=== PATIENT | male | born 1950 | race Caucasian/White ===

== ENCOUNTER 2019-06-24 14:24 | Emergency (ER) | payer MEDICARE, OTHER ==
--- NOTE | 2019-06-24 15:11 | RAD ---
EXAM: Single view of the chest HISTORY: Fall with chest trauma COMPARISON: 12/13/2008 FINDINGS: Single view of the chest shows a normal sized cardiomediastinal silhouette. There is no jewell dence of consolidation, mass, or pleural effusion. The bones are unremarkable. IMPRESSION: No evidence of acute cardiopulmonary disease
[2019-06-24 15:13] LABS: #Lymphocytes 1.1 thou/uL (1.20-3.40); #Monocytes 0.2 thou/uL (0.11-0.59); #Neutrophils 5.8 thou/uL (1.40-6.50); %Basophils 0.4 % (0.0-1.0); %Lymphocytes 15.6 % (21.0-51.0); %Monocytes 2.6 % (0.0-10.0); %Neutrophils 81.4 % (42.0-75.0); Mean Corpuscular HGB CONC 30.8 g/dL (32.0-36.0); Mean Corpuscular Hemoglobin 29.5 pg (27.0-31.0); Mean Corpuscular Volume 95.8 fL (78.0-98.0); Mean Platelet Volume 8.6 fL (7.4-10.4); Platelet Count 222 thou/uL (130-400); RBC Distribution Width 13.5 % (11.5-14.5); Red Blood Cell (RBC) Count 4.74 mill/uL (4.70-6.10); White Blood Cell (WBC) Count 7.2 thou/uL (4.8-10.8)
--- NOTE | 2019-06-24 15:25 | RAD ---
EXAM: 2 views of the right hip HISTORY: Right hip pain after fall COMPARISON: None FINDINGS: 2 views of the right hip shows a fracture of the right femoral neck. No degenerative change s are seen. No soft tissue swelling is present. IMPRESSION: Right femoral neck fracture
[2019-06-24 15:26] LABS: ALT (SGPT) 15 U/L (8-55); AST (SGOT) 20 U/L (5-34); Albumin 4.2 g/dL (3.4-4.8); Alkaline Phosphatase 78 U/L (40-110); Anion Gap 14 mmol/L (10-20); BUN (Urea Nitrogen) 8 mg/dL (8.4-25.7); Bilirubin, Total 0.6 mg/dL (0.2-1.2); Calc. Creatinine Clearance 0 mL/min (70-130); Calcium 9.1 mg/dL (7.8-10.44); Carbon Dioxide 23 mmol/L (23-31); Chloride 103 mmol/L (98-107); Estimated GFR-MDRD Greater than 90; Globulin 3.8 g/dL (2.4-3.5); Glucose 99 mg/dL (80-115); Sodium 136 mmol/L (136-145)
[2019-06-24 16:15] LABS: Acetaminophen Less than 6.0 mcg/mL (10.0-30.0); Alcohol Less than 10 mg/dL (Less than 10); Salicylate Less than 8.0 mg/dL (15.0-30.0)
== END 2019-06-24 17:57 | disposition short-term general hospital (02) ==
LOC: MADERS 14:24
DX: S72.001A Fracture of unspecified part of neck of right femur, initial encounter for closed fracture (principal); W01.0XXA Fall on same level from slipping, tripping and stumbling without subsequent striking against object, initial encounter
CPT/HCPCS: 36415; 71045; 80053; 80307; 84484; 85025; 93005

== ENCOUNTER 2019-07-31 17:00 | Inpatient (IN) | payer MEDICARE ==
[2019-07-31] MEDS: Aspirin 81 mg Enteric Coated Tablet PO SCH (21:25)
[2019-08-01] MEDS: Acetaminophen 500 MG TAB PO SCH ×4 (00:24→17:48)
[2019-08-01] MEDS: Polyethylene Glycol 3350 17 GM Packet PO SCH (09:57)
[2019-08-01] MEDS: Loratadine 10 MG TAB PO SCH (09:57)
[2019-08-01] MEDS: Aspirin 81 mg Enteric Coated Tablet PO SCH ×2 (09:57→21:25)
[2019-08-01 11:45] LABS: ALT (SGPT) 22 U/L (8-55); AST (SGOT) 26 U/L (5-34); Albumin 3.3 g/dL (3.4-4.8); Alkaline Phosphatase 88 U/L (40-110); Anion Gap 14 mmol/L (10-20); BUN (Urea Nitrogen) 11 mg/dL (8.4-25.7); Bilirubin, Total 0.5 mg/dL (0.2-1.2); Calc. Creatinine Clearance 97 mL/min (70-130); Calcium 8.7 mg/dL (7.8-10.44); Carbon Dioxide 23 mmol/L (23-31); Chloride 104 mmol/L (98-107); Estimated GFR-MDRD Greater than 90; Glucose 97 mg/dL (80-115); Potassium 3.7 mmol/L (3.5-5.1); Protein, Total 7.3 g/dL (5.8-8.1); Sodium 137 mmol/L (136-145)
[2019-08-02] MEDS: Acetaminophen 500 MG TAB PO SCH ×4 (00:45→17:45)
[2019-08-02 05:36] LABS: #Lymphocytes 1.9 thou/uL (1.20-3.40); #Monocytes 0.5 thou/uL (0.11-0.59); #Neutrophils 4.3 thou/uL (1.40-6.50); %Basophils 0.3 % (0.0-1.0); %Monocytes 7.5 % (0.0-10.0); %Neutrophils 64.2 % (42.0-75.0); Hemoglobin 9.7 g/dL (14.0-18.0); Mean Corpuscular HGB CONC 32.4 g/dL (32.0-36.0); Mean Corpuscular Hemoglobin 30.4 pg (27.0-31.0); Mean Corpuscular Volume 93.7 fL (78.0-98.0); Mean Platelet Volume 7.2 fL (7.4-10.4); Platelet Count 339 thou/uL (130-400); RBC Distribution Width 13.9 % (11.5-14.5); White Blood Cell (WBC) Count 6.6 thou/uL (4.8-10.8)
[2019-08-02] MEDS: Aspirin 81 mg Enteric Coated Tablet PO SCH ×2 (08:19→19:52)
[2019-08-02] MEDS: Loratadine 10 MG TAB PO SCH (08:19)
[2019-08-02] MEDS: Polyethylene Glycol 3350 17 GM Packet PO SCH (08:20)
[2019-08-03] MEDS: Acetaminophen 500 MG TAB PO SCH ×4 (01:56→17:35)
[2019-08-03] MEDS: Aspirin 81 mg Enteric Coated Tablet PO SCH ×2 (08:35→21:01)
[2019-08-03] MEDS: Loratadine 10 MG TAB PO SCH (08:35)
[2019-08-03] MEDS: Polyethylene Glycol 3350 17 GM Packet PO SCH (08:36)
[2019-08-04] MEDS: Acetaminophen 500 MG TAB PO SCH ×5 (01:10→21:39)
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
--- NOTE | 2019-08-04 07:39 | PRG ---
DATE OF SERVICE: 08/03/2019 SUBJECTIVE: The patient said he is doing fine. Yesterday, he got up, was able to shower himself, which is standby assistance. He says his hips are feeling good. He is not having any pain. OBJECTIVE: GENERAL: The patient is lying in bed, looks very comfortable, and in no distress. VITAL SIGNS: His temp is 98.1, pulse 75, respirations 20, O2 saturation 99% on room air, blood pressure 125/77. LUNGS: Clear. HEART: Regular rate. EXTREMITIES: No edema. ASSESSMENT: 1. Generalized weakness and deconditioning. a. Following a fall with fracture of the left hip and repair. b. Improved as of 08/03. 2. Hospitalized at [facility] from 07/28/2019 to 07/31/2019 for a fall resulting in a left femoral neck fracture, for which he underwent a bipolar hemiarthroplasty on 07/29/[address] Jeremiah Adames. 3. Hospitalized at [facility] from 06/24/2019 to 06/27/2019 for fall resulting in a right femoral neck fracture, for which he underwent a right hip arthroplasty by Dr. Jeremiah Adames on 06/25/2019. 4. History of supraventricular tachycardia. a. No recurrence as of 08/03. 5. History of traumatic brain injury from an electrocution in 1985, leaving him with slurred speech. PLAN: Continue present care. Continue PT and OT. Job ID: [id number]
[2019-08-04] MEDS: Loratadine 10 MG TAB PO SCH (08:44)
[2019-08-04] MEDS: Aspirin 81 mg Enteric Coated Tablet PO SCH ×2 (08:44→20:27)
[2019-08-04] MEDS: Polyethylene Glycol 3350 17 GM Packet PO SCH (08:45)
--- NOTE | 2019-08-04 11:11 | PRG ---
DATE OF SERVICE: 08/04/2019 SUBJECTIVE: The patient thinks he is doing fine. He is not having any pain of significance. OBJECTIVE: GENERAL: The patient is lying in bed, alert, talkative, appears very comfortable, in no distress. VITAL SIGNS: Temperature 97.8, pulse 76, respirations 16, O2 saturation 97% on room air, and blood pressure 144/65. LUNGS: Clear. HEART: Regular rate. MUSCULOSKELETAL: The left hip incision has a little serous drainage on the dressing and bruising around the left hip posteriorly. EXTREMITIES: Lower extremities, no edema. ASSESSMENT: 1. Generalized weakness and deconditioning. a. Following a fall with fracture of the hip and repair. b. Improved as of 08/04. 2. Hospitalized at [facility] from 07/28/2019 until 07/31/2019 for a fall, resulting in left femoral neck fracture, for which he underwent a bipolar hemiarthroplasty on 07/[address] Jeremiah Adames. 3. Hospitalized at [facility] from 06/24/2019 to 06/27/2019 for a fall resulting in right femoral neck fracture, for which he underwent a right hip arthroplasty by Dr. Jeremiah Adames on 06/25/2019. 4. History of supraventricular tachycardia. a. No recurrence as of 08/04. 5. History of traumatic brain injury from electrocution in 1985, leaving him with slurred speech. PLAN: Continue PT and OT. Job ID: [id number] MTDD
[2019-08-05] MEDS: Acetaminophen 500 MG TAB PO SCH ×3 (05:58→17:31)
[2019-08-05] MEDS: Polyethylene Glycol 3350 17 GM Packet PO SCH (09:20)
[2019-08-05] MEDS: Aspirin 81 mg Enteric Coated Tablet PO SCH ×2 (09:21→21:19)
[2019-08-05] MEDS: Loratadine 10 MG TAB PO SCH (09:21)
--- NOTE | 2019-08-05 09:25 | PRG ---
DATE OF SERVICE: 08/05/2019 SUBJECTIVE: The patient thinks he is doing good. He is doing better with therapy. He is not having any significant pain. OBJECTIVE: GENERAL: The patient is sitting up on side of the bed, eating breakfast. He is alert, talkative, appears in no distress. VITAL SIGNS: Show temperature 97, pulse 77, respirations are 16, O2 saturation 96% on room air, blood pressure 105/75. LUNGS: Clear. HEART: Regular rate. EXTREMITIES: Lower extremities, no edema. NEUROLOGIC: The patient is alert, talkative, sometimes has little trouble getting all his thoughts out and slurs his speech just a little, which is all chronic. ASSESSMENT: 1. Generalized weakness and deconditioning. a. Following a fall with fracture of the left hip and repair. b. Improving as of 08/05. 2. Hospitalized at [facility] from 07/28/2019 until 07/31/2019 for a fall, resulting in left femoral neck fracture, for which he underwent a bipolar hemiarthroplasty on 07/[address] Jeremiah Adames. 3. Hospitalized at [facility] from 06/24/2019 to 06/27/2019 for fall resulting in a right femoral neck fracture, for which he underwent a right hip arthroplasty by Dr. Jeremiah Adames on 06/25/2019. 4. History of supraventricular tachycardia. a. No recurrence as of 08/05. 5. History of traumatic brain injury from an electrocution, 1985, leaving him with some slurred speech and little trouble completing his thoughts. PLAN: Continue PT. Job ID: [id number] [facility]
[2019-08-05] MEDS: Ibuprofen 600 MG TAB PO PRN (17:31)
[2019-08-06] MEDS: Acetaminophen 500 MG TAB PO SCH ×4 (03:03→18:04)
[2019-08-06] MEDS: Aspirin 81 mg Enteric Coated Tablet PO SCH ×2 (08:40→20:11)
[2019-08-06] MEDS: Polyethylene Glycol 3350 17 GM Packet PO SCH (08:40)
[2019-08-06] MEDS: Loratadine 10 MG TAB PO SCH (08:40)
[2019-08-06] MEDS: Ibuprofen 600 MG TAB PO PRN (20:12)
[2019-08-07] MEDS: Acetaminophen 500 MG TAB PO SCH ×4 (01:05→18:28)
[2019-08-07] MEDS: Aspirin 81 mg Enteric Coated Tablet PO SCH ×2 (08:23→21:29)
[2019-08-07] MEDS: Polyethylene Glycol 3350 17 GM Packet PO SCH (08:23)
[2019-08-07] MEDS: Loratadine 10 MG TAB PO SCH (08:23)
--- NOTE | 2019-08-07 08:58 | PRG ---
DATE OF SERVICE: 08/07/2019 SUBJECTIVE: The patient is doing good. He has no complaint. He is transferring easier and is walking further. OBJECTIVE: GENERAL: The patient is alert, appears comfortable, in no distress. VITAL SIGNS: His temperature 96.5, pulse 74, respirations 16, O2 saturation 97 % on room air, and blood pressure 118/68. LUNGS: Clear. HEART: Regular rate. EXTREMITIES: The patient ambulating with the use of his walker. ASSESSMENT: 1. Generalized weakness and deconditioning. a. Following a fall with fracture of the left hip and repair. b. Improving as of 08/07. 2. Hospitalized at [facility] from 07/28/2019 until 07/31/2019 for fall , resulting left femoral neck fracture, for which he underwent a bipolar hemiarthroplasty on 07/[address] Jeremiah Adames. 3. Hospitalized at [facility] from 06/24/2019 until 06/27/2019 for fall , resulting right femoral neck fracture, for which he underwent a right hip arthroplasty by Dr. Jeremiah Adames, orthopedic surgeon, on 2019. 4. History of supraventricular tachycardia. a. No recurrence. 5. History of traumatic brain injury from an electrocution in 1985 that left the patient with some slurred speech and a little trouble completing thoughts. PLAN: Continue PT and OT. Job ID: [id number] MTDD
[2019-08-08] MEDS: Acetaminophen 500 MG TAB PO SCH ×4 (01:06→17:23)
[2019-08-08] MEDS: Loratadine 10 MG TAB PO SCH (08:40)
[2019-08-08] MEDS: Polyethylene Glycol 3350 17 GM Packet PO SCH (08:40)
[2019-08-08] MEDS: Aspirin 81 mg Enteric Coated Tablet PO SCH ×2 (08:40→21:10)
--- NOTE | 2019-08-08 12:20 | PRG ---
DATE OF SERVICE: 08/08/2019 SUBJECTIVE: The patient said he is doing good. He is making good progress with physical therapy and he is having no significant pain. OBJECTIVE: GENERAL: The patient is lying in his bed, alert, talkative, appears in no distress. VITAL SIGNS: His temp is 97.9, pulse 80, respirations 16, O2 saturation 97% on room air, blood pressure 112/72. LUNGS: Clear. HEART: Regular rate. EXTREMITIES: No edema. ASSESSMENT: 1. Generalized weakness and deconditioning. a. Following a fall and fracture of the left hip and repair. b. Continued improvement as of 08/08. 2. Hospitalized at [facility] from 07/28/2019 until 07/31/2019 for fall resulting in left femoral neck fracture, for which he underwent a bipolar hemiarthroplasty on 07/[address] Jeremiah Adames. 3. Hospitalized at [facility] from 06/24/2019 until 06/27/2019 for fall resulting in right femoral neck fracture, for which he underwent a right hip arthroplasty by Dr. Jeremiah Adames on 06/25/2019. 4. History of supraventricular tachycardia. a. No recurrence. 5. History of traumatic brain injury from an electrocution in 1985 that left the patient with some slurred speech and little trouble completing his thoughts. PLAN: Continue PT/OT. Job ID: [id number] [facility]
[2019-08-09] MEDS: Acetaminophen 500 MG TAB PO SCH ×4 (02:04→17:34)
[2019-08-09] MEDS: Aspirin 81 mg Enteric Coated Tablet PO SCH ×2 (08:55→20:40)
[2019-08-09] MEDS: Loratadine 10 MG TAB PO SCH (08:55)
[2019-08-09] MEDS: Polyethylene Glycol 3350 17 GM Packet PO SCH (08:56)
[2019-08-10] MEDS: Acetaminophen 500 MG TAB PO SCH ×4 (00:47→16:57)
[2019-08-10] MEDS: Polyethylene Glycol 3350 17 GM Packet PO SCH (08:59)
[2019-08-10] MEDS: Aspirin 81 mg Enteric Coated Tablet PO SCH ×2 (08:59→21:12)
[2019-08-10] MEDS: Loratadine 10 MG TAB PO SCH (08:59)
[2019-08-11] MEDS: Acetaminophen 500 MG TAB PO SCH ×4 (00:42→18:31)
--- NOTE | 2019-08-11 06:10 | PRG ---
DATE OF SERVICE: 08/10/2019 SUBJECTIVE: The patient thinks he is doing fine. He is doing better on his transfers, is walking further. He is not having any pain. OBJECTIVE: GENERAL: The patient is lying in bed, but was able to get up into a seated position with his feet on the ground without any problem. He is alert, appears in no distress. VITAL SIGNS: His temperature 97.1 pulse 68, respirations 16, O2 saturation 98% on room air, blood pressure 120/60. LUNGS: Clear. HEART: Regular rate. EXTREMITIES: No edema. ASSESSMENT: 1. Generalized weakness and deconditioning. a. Following a fall and fracture of the left hip and repair. b. Continued improvement as of 08/10. 2. Hospitalized at [facility] from 07/28 to 07/31/2019 for fall resulting in left femoral neck fracture, for which he underwent a bipolar hemiarthroplasty on 07/[address] Jeremiah Adames. 3. Hospitalized at [facility] from 06/24/2019 until 06/27/2019 for a fall resulting in a right femoral neck fracture, for which he underwent a right hip arthroplasty by Dr. Jeremiah Adames on 06/25/2019. 4. History of supraventricular tachycardia. a. No recurrence. 5. History of traumatic brain injury from an electrocution 1985, that has left the patient with slurred speech and trouble completing his thoughts at times. PLAN: Continue PT, OT. The patient is scheduled to be seen in followup by his orthopedic surgeon, Dr. Jeremiah Adames on 08/14. Job ID: [id number] MTDD
[2019-08-11] MEDS: Loratadine 10 MG TAB PO SCH (08:32)
[2019-08-11] MEDS: Aspirin 81 mg Enteric Coated Tablet PO SCH ×2 (08:32→21:40)
[2019-08-11] MEDS: Polyethylene Glycol 3350 17 GM Packet PO SCH (08:33)
[2019-08-12] MEDS: Acetaminophen 500 MG TAB PO SCH ×4 (03:01→17:51)
[2019-08-12] MEDS: Aspirin 81 mg Enteric Coated Tablet PO SCH ×2 (08:25→21:24)
[2019-08-12] MEDS: Polyethylene Glycol 3350 17 GM Packet PO SCH (08:25)
[2019-08-12] MEDS: Loratadine 10 MG TAB PO SCH (08:26)
[2019-08-13] MEDS: Acetaminophen 500 MG TAB PO SCH ×5 (01:21→20:56)
[2019-08-13] MEDS: Aspirin 81 mg Enteric Coated Tablet PO SCH ×2 (08:58→20:55)
[2019-08-13] MEDS: Loratadine 10 MG TAB PO SCH (08:58)
[2019-08-13] MEDS: Polyethylene Glycol 3350 17 GM Packet PO SCH (09:00)
[2019-08-14] MEDS: Acetaminophen 500 MG TAB PO SCH ×5 (05:37→21:22)
[2019-08-14] MEDS: Loratadine 10 MG TAB PO SCH (08:34)
[2019-08-14] MEDS: Aspirin 81 mg Enteric Coated Tablet PO SCH ×2 (08:34→21:22)
[2019-08-14] MEDS: Polyethylene Glycol 3350 17 GM Packet PO SCH (08:35)
--- NOTE | 2019-08-14 09:04 | PRG ---
DATE OF SERVICE: 08/14/2019 SUBJECTIVE: The patient said he is doing better, his strength is better, he is transferring independently, he is able to dress himself, and he is ambulating well with his walker. He is due to see his orthopedic surgeon, Dr. Adames, tomorrow. OBJECTIVE: GENERAL: The patient is alert. He is standing. He has already dressed himself and is using his walker to assist with ambulation. VITAL SIGNS: His temperature is 98, pulse 85, respirations 16, O2 saturation 98 % on room air, and blood pressure 124/63. LUNGS: Clear. HEART: Regular rate. EXTREMITIES: No edema. ASSESSMENT: 1. Generalized weakness and deconditioning. a. Following a fall and fracture of the left hip and repair. b. Continued improvement, ambulating with the use of a walker independently and transferring independently as of 08/14. 2. Hospitalized at [facility] from 07/28/2018 to 07/31/2019 for fall, resulting in a left femoral neck fracture, for which he underwent a bipolar hemiarthroplasty on 07/[address] Jeremiah Adames. 3. Hospitalized at [facility] from 06/24/2019 until 06/27/2019 for fall resulting in a right femoral neck fracture, for which he underwent a right hip arthroplasty by Dr. Jeremiah Adames on 06/25/2019. 4. History of supraventricular tachycardia. a. No recurrence. 5. History of traumatic brain injury from an electrocution in 1985 that has left him with slurred speech and intermittent difficulty completing his thoughts. PLAN: The patient is making excellent progress. He is due to see Dr. Adames tomorrow. I feel like the patient will be able to be managed at home. He lives with his mother. Anticipate discharge on 08/15. Job ID: [id number] MTDD
[2019-08-14 15:05] VITALS: BMI 20.8
[2019-08-15] MEDS: Acetaminophen 500 MG TAB PO SCH ×3 (05:53→11:19)
[2019-08-15] MEDS: Polyethylene Glycol 3350 17 GM Packet PO SCH (08:45)
[2019-08-15] MEDS: Loratadine 10 MG TAB PO SCH (08:45)
[2019-08-15] MEDS: Aspirin 81 mg Enteric Coated Tablet PO SCH (08:45)
[2019-08-15 09:25] VITALS: BP 118/73; TEMP 97.4
--- NOTE | 2019-08-15 11:57 | DIS ---
DATE OF ADMISSION: 07/31/2019 DATE OF DISCHARGE: 08/15/2019 FINAL DIAGNOSES: 1. Generalized weakness and deconditioning. a. Following a fall and fracture of the left hip and surgical repair. b. Continued improvement. Ambulating with a use of a walker and transferring independently as of 08/15. 2. Hospitalized at [facility] from 07/28/2019 to 07/31/2019 for a fall resulting in a left femoral neck fracture, for which he underwent a bipolar hemiarthroplasty on 07/29/[address] Jeremiah Adames. 3. Hospitalized at [facility] from 06/24/2019 until 06/27/2019 for fall resulting in a right femoral neck fracture, for which he underwent a right hip arthroplasty by Dr. Jeremiah Adames on 06/25/2019. 4. History of supraventricular tachycardia. a. No recurrence. b. History of a traumatic brain injury from an electrocution in 1985 that has left him with a slurred speech and some intermittent difficulty expressing his thoughts. SUMMARY: The patient is a 69-year-old white male, who lives with his mother, is independent of his ADLs. Years ago, he had electrocution in 1985 that left him with a slurred speech and a little difficulty expressing himself. The patient had a fall resulting in a right femoral neck fracture on 06/24/2019 for which he underwent a right hip hemiarthroplasty on 06/25/2019. He recovered fine from this, but then he had another fall on 07/28/2019 and had a left femoral neck fracture. He was hospitalized at [facility] from 07/28 to 07/31. There he underwent a left bipolar hemiarthroplasty by Dr. Jeremiah Adames on 07/29. Postop course was unremarkable. He was transferred to [facility] for purpose of rehabilitation in an effort to improve his gait, decrease his fall risk and increase his general functional capability. While in the hospital, he had no complications. Incisions were healing well. He saw Dr. Adames, his orthopedic surgeon, on 08/14/2019, a repeat x-ray was done and he thought he was healing well. All the lino have been removed. He is due to see Dr. Adames again in six weeks. During his hospitalization, he worked with Physical Therapy and Occupational Therapy and has made excellent progress. By the time of his discharge, he was walking up to 250 feet several times a day with a rolling walker and only standby assistance. He was transferring independently. He was not having any pain. He had Tylenol and ibuprofen if needed. On 08/15, his condition improved, where it felt that he could manage fine at home. He has elected to continue physical therapy as an outpatient [facility] [place]. DISPOSITION: DIET: Regular diet. ACTIVITIES: Ambulate with the use of a walker. Outpatient physical therapy at the [facility]. FOLLOWUP: At my office in 2 weeks. MEDICATIONS: 1. MiraLAX 17 g 8 ounces water daily. 2. Loratadine 10 mg daily for nasal congestion. 3. Ibuprofen 200 mg three tablets every 8 hours p.r.n. 4. Acetaminophen 500 mg two tablets every 6 hours p.r.n. pain. 5. Aspirin 81 mg b.i.d. CODE STATUS: Full code. Job ID: [id number]
== END 2019-08-15 13:30 | disposition home or self-care (01) | DRG 561 ==
LOC: MADMS 17:00
PROVIDERS: ADMIT Family Medicine; ATTEND Family Medicine
DX: Z47.1 Aftercare following joint replacement surgery (principal); S72.092D Other fracture of head and neck of left femur, subsequent encounter for closed fracture with routine healing; R53.1 Weakness; R53.81 Other malaise; Z96.641 Presence of right artificial hip joint; R26.89 Other abnormalities of gait and mobility; Z96.642 Presence of left artificial hip joint; E78.5 Hyperlipidemia, unspecified; Z79.82 Long term (current) use of aspirin; Z79.899 Other long term (current) drug therapy; Z98.890 Other specified postprocedural states; Z91.010 Allergy to peanuts; Z88.0 Allergy status to penicillin; Z91.018 Allergy to other foods; Z87.820 Personal history of traumatic brain injury; S72.001D Fracture of unspecified part of neck of right femur, subsequent encounter for closed fracture with routine healing; W18.30XD Fall on same level, unspecified, subsequent encounter
CPT/HCPCS: 80053; 85025

== ENCOUNTER 2020-11-25 12:53 | Outpatient (CLI) | payer MEDICARE ==
[2020-11-25 13:26] LABS: ALT (SGPT) 11 U/L (8-55); AST (SGOT) 16 U/L (5-34); Albumin 3.8 g/dL (3.4-4.8); Alkaline Phosphatase 66 U/L (40-110); Anion Gap 21 mmol/L (10-20); BUN (Urea Nitrogen) 95 mg/dL (8.4-25.7); Bilirubin, Total 0.3 mg/dL (0.2-1.2); Calc. Creatinine Clearance 0 mL/min (70-130); Calcium 9.1 mg/dL (7.8-10.44); Carbon Dioxide 17 mmol/L (23-31); Chloride 105 mmol/L (98-107); Globulin 4.7 g/dL (2.4-3.5); Glucose 81 mg/dL (80-115); Potassium 4.5 mmol/L (3.5-5.1); Protein, Total 8.5 g/dL (5.8-8.1); Sodium 138 mmol/L (136-145)
[2020-11-25 14:09] LABS: #Monocytes 0.2 thou/uL (0.11-0.59); #Neutrophils 2.6 thou/uL (1.40-6.50); %Basophils 0.5 % (0.0-1.0); %Monocytes 4.6 % (0.0-10.0); %Neutrophils 53.9 % (42.0-75.0); Hemoglobin 8.8 g/dL (14.0-18.0); Mean Corpuscular HGB CONC 31.4 g/dL (32.0-36.0); Mean Corpuscular Hemoglobin 31.1 pg (27.0-31.0); Mean Corpuscular Volume 99.1 fL (78.0-98.0); Mean Platelet Volume 8.4 fL (7.4-10.4); Platelet Count 269 thou/uL (130-400); RBC Distribution Width 13.2 % (11.5-14.5); Red Blood Cell (RBC) Count 2.84 mill/uL (4.70-6.10); White Blood Cell (WBC) Count 4.9 thou/uL (4.8-10.8)
== END 2020-11-25 12:54 | disposition home or self-care (01) ==
LOC: MADLAB 12:53
PROVIDERS: ATTEND Family Medicine
DX: N18.9 Chronic kidney disease, unspecified (principal)
CPT/HCPCS: 36415; 80053; 85025

== ENCOUNTER 2021-02-01 12:20 | Outpatient (CLI) | payer MEDICARE | END 2021-02-01 12:21 | disposition home or self-care (01) | LOC: MADRAD 12:20 | PROVIDERS: ATTEND Internal Medicine Rheumatology | DX: R06.02 Shortness of breath (principal); I77.6 Arteritis, unspecified | CPT/HCPCS: 71046 ==

== ENCOUNTER 2023-04-15 15:02 | Emergency (ER) | payer MEDICARE ==
[2023-04-15] MEDS ORDERED: Lidocaine 1% (PF) 30 ML VIAL ONE (15:46)
[2023-04-15] MEDS ORDERED: Bacitracin 1 PK ONE (15:46)
== END 2023-04-15 16:51 | disposition home or self-care (01) ==
LOC: MADERS 15:02
DX: S61.011A Laceration without foreign body of right thumb without damage to nail, initial encounter (principal); S70.02XA Contusion of left hip, initial encounter; F17.210 Nicotine dependence, cigarettes, uncomplicated; N18.9 Chronic kidney disease, unspecified; W18.30XA Fall on same level, unspecified, initial encounter; Y92.009 Unspecified place in unspecified non-institutional (private) residence as the place of occurrence of the external cause; Z99.2 Dependence on renal dialysis; Z79.82 Long term (current) use of aspirin; Z79.899 Other long term (current) drug therapy
CPT/HCPCS: 12001; 72170; J2001

== ENCOUNTER 2023-04-24 13:08 | Emergency (ER) | payer MEDICARE | END 2023-04-24 14:17 | disposition home or self-care (01) | LOC: MADERS 13:08 | DX: S61.011D Laceration without foreign body of right thumb without damage to nail, subsequent encounter (principal); X58.XXXD Exposure to other specified factors, subsequent encounter ==

== ENCOUNTER 2023-08-09 13:01 | Emergency (ER) | payer MEDICARE | END 2023-08-09 14:55 | disposition home or self-care (01) | LOC: MADERS 13:01 | DX: I73.9 Peripheral vascular disease, unspecified (principal); L97.529 Non-pressure chronic ulcer of other part of left foot with unspecified severity; N18.6 End stage renal disease; F17.210 Nicotine dependence, cigarettes, uncomplicated; E78.5 Hyperlipidemia, unspecified; Z87.820 Personal history of traumatic brain injury; Z99.2 Dependence on renal dialysis ==

== ENCOUNTER 2025-05-21 11:25 | Emergency (ER) | payer MEDICARE ==
[2025-05-21 13:05] LABS: Hematocrit 32.8 % (42.0-52.0); Hemoglobin 10.4 g/dL (14.0-18.0); Mean Corpuscular Hemoglobin 35.7 pg (27.0-31.0); Mean Corpuscular Volume 113.2 fl (78.0-98.0); Platelet Count 351 10x3/uL (130-400); Red Blood Cell (RBC) Count 2.90 mill/uL (4.70-6.10); White Blood Cell (WBC) Count 11.7 10x3/uL (4.8-10.8)
[2025-05-21 13:17] LABS: ALT (SGPT) 14 U/L (Less than 45); AST (SGOT) 31 U/L (11-34); Albumin 2.0 g/dL (3.1-4.5); Alkaline Phosphatase 56 U/L (40-110); Anion Gap 21 mmol/L (10-20); BUN (Urea Nitrogen) 95 mg/dL (8.4-25.7); Bilirubin, Total 0.7 mg/dL (0.3-1.2); Calc. Creatinine Clearance 0 mL/min (70-130); Calcium 9.5 mg/dL (7.8-10.44); Carbon Dioxide 20 mmol/L (23-31); Chloride 100 mmol/L (98-107); Globulin 6.0 g/dL (2.4-3.5); Glucose 113 mg/dL (83-110); Potassium 4.9 mmol/L (3.5-5.1); Sodium 136 mmol/L (136-145)
[2025-05-21 13:19] LABS: MDiff Complete? YES; Manual Diff?? YES
[2025-05-21 13:20] LABS: Macrocytosis SLIGHT = 6-15 cells (100X) (0-5/hpf); Polychromasia SLIGHT = 2-3 cells (100X) (0-2/hpf)
[2025-05-21 13:21] LABS: Platelet Adequacy Comment Appears Adequate
== END 2025-05-21 17:03 ==
LOC: MADERS 11:25
DX: R53.81 Other malaise (principal); E43 Unspecified severe protein-calorie malnutrition; R29.6 Repeated falls; I12.0 Hypertensive chronic kidney disease with stage 5 chronic kidney disease or end stage renal disease; N18.6 End stage renal disease; F17.210 Nicotine dependence, cigarettes, uncomplicated; Z99.2 Dependence on renal dialysis; Z79.82 Long term (current) use of aspirin; Z79.899 Other long term (current) drug therapy
CPT/HCPCS: 36415; 80053; 85025; 99284